=== PATIENT | male | born 1955 ===

== ENCOUNTER 2018-05-05 07:06 | Outpatient (CLI) | payer OTHER ==
[~2018-05-05] VITALS: Ht 152.4 cm; Wt 68.0 kg
[~2018-05-05 07:06] MED LIST: OFLOXACIN5 ML OTIC
== END 2018-05-05 07:20 | disposition home or self-care (01) ==
LOC: OFIC 805 07:06
DX: H93.12 Tinnitus, left ear (principal); H60.8X2 Other otitis externa, left ear; H61.23 Impacted cerumen, bilateral; J31.0 Chronic rhinitis

== ENCOUNTER 2018-10-13 07:34 | Outpatient (CLI) | payer OTHER ==
[~2018-10-13] VITALS: Ht 152.4 cm; Wt 68.0 kg
[2018-10-13] MEDS ORDERED: OFLOXACIN5 ML OTIC (10:08)
== END 2018-10-13 07:50 | disposition home or self-care (01) ==
LOC: OFIC 805 07:34
DX: H93.13 Tinnitus, bilateral (principal); H60.8X2 Other otitis externa, left ear; J31.0 Chronic rhinitis; H61.23 Impacted cerumen, bilateral